=== PATIENT | female | born 1990 | race Caucasian/White ===

== ENCOUNTER 2016-06-10 21:21 | Outpatient (CLI) | payer SELFPAY ==
[2016-06-10] MEDS ORDERED: LACTATED RINGERS 500 ML IV ONE (21:36)
[2016-06-10 22:03] VITALS: BP 104/74
[2016-06-10 22:39] LABS: Bilirubin,Urine NEG (Negative); Blood,Urine NEG (Negative); Ketones,Urine NEG (Negative); Leukocyte Esterase,Urine NEG (Negative); Nitrite,Urine NEG (Negative); Protein,Urine <15 mg/dL mg/dL (Negative); Urobilinogen,Urine < 2.0 mg/dL (<2.0)
== END 2016-06-10 23:23 | disposition home or self-care (01) ==
LOC: TRG 21:21
PROVIDERS: ATTEND Specialist
DX: O47.02 False labor before 37 completed weeks of gestation, second trimester (principal); Z3A.25 25 weeks gestation of pregnancy
CPT/HCPCS: 81001; J7120